=== PATIENT | female | born 1995 | race Caucasian/White ===

== ENCOUNTER → 2018-09-06 10:16 | Outpatient (CLI) | payer OTHER, SELFPAY ==
[2018-09-06 09:20] VITALS: BMI 25.8
[2018-09-06 10:49] LABS: Absolute Lymphocyte Count 1.82 X10^3/ul (0.83-4.51); Absolute Neutrophil Count 5.8 X10^3/uL (2.0-7.7); Basophil# 0.03 X10^3/uL; Basophil% 0.4 % (0-1); Eosinophil# 0.24 X10^3/uL; Eosinophils% 2.8 % (0-5); Hematocrit 33.9 % (37-47); Hemoglobin 11.6 g/dl (12.0-15.0); Lymphocyte # 1.82 X10^3/ul (4.0); Lymphocyte % 21.3 % (19-41); Mean Corp Hgb Conc 34.2 g/gl (32-36); Mean Corpuscular Volume 87.6 fL (81-99); Mean Platelet Vol. 12.8 fl (6.2-12.0); Neutrophil # 5.84 X10^3/uL (2.7-7.7); Neutrophil % 68.4 % (47-70); Platelet Count 190 K/mm3 (150-450); RBC Distribution Width CV 12.4 % (11.6-14.6); RBC Distribution Width SD 39.5 fl (35.1-43.9); Red Blood Count 3.87 M/mm3 (4.2-5.4); White Blood Count 8.5 K/mm3 (4.4-11.0)
[2018-09-06 10:51] LABS: POSITIVE COUNT NO; POSITIVE DIFFERENTIAL NO; POSITIVE MORPHOLOGY NO
[2018-09-06 11:59] LABS: HIV - WCH Non-Reactive (Nonreactive); Rubella IgG 215.6 IU/mL
[2018-09-06 16:09] LABS: Chlamydia Trachomatis by PCR Negative (Negative); Neisserai gonorrhoeae by PCR Negative (Negative); Probe Check PASS; Sample Adequacy Control PASS; Specimen Processing Control PASS
[2018-09-07 09:54] LABS: HEPATITIS B SURFACE AG Negative (Negative)
[2018-09-08 01:43] LABS: Rapid Plasmin Reagin (RPR) NONREACTIVE (NONREACTIVE)
[2018-09-08 12:56] LABS: HPV Reflexed? NOT INDICATED
== END ==
PROVIDERS: Family Provider Family Medicine; PCP Family Medicine; Referring Provider Obstetrics & Gynecology; Visit Provider Obstetrics & Gynecology
DX: Z34.81 Encounter for supervision of other normal pregnancy, first trimester (principal)
CPT/HCPCS: 36415; 85025; 86592; 86703; 86762; 86850; 86900; 87086; 87340; 87491; 87591; 87624; 88175; G0145

== ENCOUNTER → 2018-11-03 09:45 | Outpatient (CLI) | payer OTHER, SELFPAY ==
[2018-11-03 09:18] VITALS: BMI 25.8
== END ==
PROVIDERS: Family Provider Family Medicine; PCP Family Medicine; Referring Provider Obstetrics & Gynecology; Visit Provider Obstetrics & Gynecology
DX: Z36.9 Encounter for antenatal screening, unspecified (principal)
CPT/HCPCS: 36415

== ENCOUNTER → 2019-01-03 10:07 | Outpatient (CLI) | payer OTHER, SELFPAY ==
[2019-01-03 10:02] VITALS: BMI 25.8
[2019-01-03 10:53] LABS: Absolute Lymphocyte Count 1.93 X10^3/uL (0.83-4.51); Absolute Neutrophil Count 6.1 X10^3/uL (2.0-7.7); Basophil# 0.04 X10^3/uL; Basophil% 0.4 % (0-1); Eosinophil# 0.35 X10^3/uL; Eosinophils% 3.9 % (0-5); Hematocrit 33.1 % (37-47); Lymphocyte # 1.93 X10^3/ul (4.0); Lymphocyte % 21.5 % (19-41); Mean Corp Hgb Conc 33.2 g/dL (32-36); Mean Corpuscular Volume 93.2 fL (81-99); Mean Platelet Vol. 12.7 fl (6.2-12.0); Monocyte# 0.57 X10^3/uL; Monocyte% 6.3 % (0-10); NRBC Flagged by Analyzer 0 % (0-5); Neutrophil # 6.06 X10^3/uL (2.7-7.7); Neutrophil % 67.6 % (47-70); Platelet Count 173 K/mm3 (150-450); RBC Distribution Width SD 41.1 fl (35.1-43.9); Red Blood Count 3.55 M/mm3 (4.2-5.4)
[2019-01-03 11:12] LABS: Glucose Challenge Gest 1H 50g 103 mg/dL (70-140)
== END ==
PROVIDERS: Family Provider Family Medicine; PCP Family Medicine; Referring Provider Nurse Practitioner Women's Health; Visit Provider Nurse Practitioner Women's Health
DX: Z34.90 Encounter for supervision of normal pregnancy, unspecified, unspecified trimester (principal)
CPT/HCPCS: 36415; 82950; 85025

== ENCOUNTER → 2019-03-09 16:42 | Outpatient (CLI) | payer OTHER, SELFPAY ==
[2019-03-09 10:00] VITALS: BMI 25.8
== END ==
PROVIDERS: Family Provider Family Medicine; PCP Family Medicine; Referring Provider Obstetrics & Gynecology; Visit Provider Obstetrics & Gynecology
DX: Z34.02 Encounter for supervision of normal first pregnancy, second trimester (principal)
CPT/HCPCS: 87081

== ENCOUNTER 2019-03-11 01:55 | Inpatient (IN) | payer OTHER, SELFPAY ==
[2019-03-09 10:00] VITALS: BMI 25.8
[2019-03-11] MEDS: Lactated Ringers 1,000 ML 50 ML IV (02:33)
[2019-03-11 02:52] VITALS: BMI 29.6
[2019-03-11 03:00] LABS: Absolute Neutrophil Count 15.3 X10^3/uL (2.0-7.7); Basophil# 0.05 X10^3/uL; Basophil% 0.3 % (0-1); Eosinophil# 0.26 X10^3/uL; Eosinophils% 1.3 % (0-5); Hematocrit 30.2 % (37-47); Hemoglobin 10.3 g/dL (12.0-15.0); Lymphocyte % 11.3 % (19-41); Mean Corp Hgb Conc 34.1 g/dL (32-36); Mean Corpuscular Hgb 30.3 pg (27.0-32.0); Mean Corpuscular Volume 88.8 fL (81-99); Mean Platelet Vol. 13.3 fl (6.2-12.0); Monocyte% 8.2 % (0-10); NRBC Flagged by Analyzer 0 % (0-5); Neutrophil # 15.25 X10^3/uL (2.7-7.7); Neutrophil % 78.1 % (47-70); POSITIVE DIFFERENTIAL YES; Platelet Count 182 K/mm3 (150-450); RBC Distribution Width CV 12.4 % (11.6-14.6); RBC Distribution Width SD 40.2 fl (35.1-43.9); White Blood Count 19.5 K/mm3 (4.4-11.0)
[2019-03-11 03:05] LABS: International Normalized Ratio 1.1; Prothrombin Time (Protime)PT. 14.1 SECONDS (11.7-14.9)
[2019-03-11 03:10] LABS: Differential Indicated SCAN CRITERIA MET
[2019-03-11 03:30] LABS: Protein, Urine (Random) 62.8 mg/dL (<11.9); Protein:Creat Ratio 442 mg/g CRE (0-200)
[2019-03-11 03:30] LABS: AST(SGOT) 21 U/L (15-37); Alanine Aminotransfer ALT/SGPT 16 U/L (13-56); Creatinine, Serum 0.53 mg/dL (0.55-1.02); EST Glomerular Filtration Rate 151 mL/min (>60); Est Glom Filt Rate - Afr Amer 183 mL/min (>60); Estimated Creatinine Clearance 147.28 ml/min; Uric Acid 3.9 mg/dL (2.6-6.0)
--- NOTE | 2019-03-11 03:34 | PCM.HP.OB ---
- Problem List (1) Asthma Status: Acute Qualifiers: Comment: questionable diagnosis. hasn't used in over a month. sees Ana Weinstein. encouraged evaluation (2) Supervision of normal Status: Acute Qualifiers: Comment: PRR TROY 03/31/2019 boy Gordon Hernandez (son Jonny) (3) Status: Acute Qualifiers: Comment: low risk nipt horizon negative 4 out of 4 diseases. Anatomy US normal History Date of Admission: 03/11/19 Final TROY: 03/31/19 Gestational age: 37 Weeks and 1 Days History of this : This is a 23 year-old, at 37 weeks gestational age presents IAL 5 cm dilated with regular ctx. she denies any vb admits good fm. inital bps were elevated but repeats are WNL. WBC is elevated and temp is borderline. gbs unknown, was collected tuesday. rapid sent. Surgical History: Surgical History (Last Reviewed 03/09/19 @ 09:59 by Cristiane Covington) History of oral surgery Z98.890 Allergies cat dander Allergy (Verified 03/11/19 03:00) Other watery eyes and congestion Home Medications: Home Medications albuterol sulfate HFA 90 mcg/actuation aerosol inhaler 1 puff INHALATION Q6H PRN 09/06/18 cetirizine 10 mg capsule 10 mg PO DAILY 09/06/18 montelukast 10 mg tablet 10 mg PO QPM 09/06/18 vitamin#30 30 mg iron-10 mg iron-folic acid 1 mg-omg3 capsule cap PO cap 09/06/18 DiphenhydrAMINE [Benadryl] 25 mg PO DAILY PRN 03/11/19 Smoking Status: Never smoker Alcohol: None Number of Fetus(es): 1 NST - FHR Rate Baby A Baseline: 140 Variability:: Moderate Accelerations:: 15 x 15 Decelerations:: None NST Reactive:: Yes FHR Category:: Category I Uterine Activity:: q 3-5 History Past Pregnancies: Past Pregnancies Delivery Date Name GA/ Weeks Outcome Route Wt Sex Labor Length Anesthesia Delivery Location Provider FOB Labs: Mom's Labs & Results 03/11/19 03/11/19 03/11/19 02:30 02:33 02:33 WBC 19.5 H RBC 3.40 L Hgb 10.3 L Hct 30.2 L MCV 88.8 MCH 30.3 MCHC 34.1 RDW Std Deviation 40.2 RDW Coeff of Yvette 12.4 Plt Count 182 MPV 13.3 H Immature Gran % (Auto) 0.800 Neut % (Auto) 78.1 H Lymph % (Auto) 11.3 L Clare % (Auto) 8.2 Eos % (Auto) 1.3 Baso % (Auto) 0.3 Absolute Neuts (auto) 15.3 H Absolute Lymphs (auto) 2.20 Nucleated RBC % 0 PT INR APTT Creatinine Estim Creat Clear Calc Est GFR (MDRD) Af Amer Est GFR (MDRD) Non-Af Uric Acid AST ALT U Random Total Protein Urine Creatinine Protein/Creatinin Ratio Group B Strep DNA Pending Specimen Comment Pending Blood Type Pending Antibody Screen Pending 03/11/19 03/11/19 03/11/19 02:33 02:33 03:10 WBC RBC Hgb Hct MCV MCH MCHC RDW Std Deviation RDW Coeff of Yvette Plt Count MPV Immature Gran % (Auto) Neut % (Auto) Lymph % (Auto) Clare % (Auto) Eos % (Auto) Baso % (Auto) Absolute Neuts (auto) Absolute Lymphs (auto) Nucleated RBC % PT 14.1 INR 1.1 APTT 31.0 Creatinine 0.53 L Estim Creat Clear Calc 147.28 Est GFR (MDRD) Af Amer 183 Est GFR (MDRD) Non-Af 151 Uric Acid 3.9 AST 21 ALT 16 U Random Total Protein 62.8 H Urine Creatinine 142.00 Protein/Creatinin Ratio 442 H Group B Strep DNA Specimen Comment Blood Type Antibody Screen Course Did the patient receive Yes care? Labs Blood Type: O RH: POSITIVE RPR/VDRL/Syphilis Nonreactive Rubella status Immune HbSAg Negative Date Done: 09/06/18 Chlamydia Negative Gonorrhea Negative HIV/AIDS Non-Reactive Group B Strep: Collected on Admission Current Obstetrical History Gestational Diabetes No Incompetent Cervix No Infertility No IUGR No Macrosomia No Hypertension/Pre-eclampsia No Placenta Previa/Abruption No PTL/PROM No Uterine anomaly No Oligohydramnios No Polyhydramnios No Multiple gestation No Past Medical History Asthma Yes: intermittently uses inhaler Diabetes No Hypertension No Heart disease No Mitral valve prolapse No Neurologic/Seizure disorder/ No Migraines Kidney disease No Liver disease No Varicosities No Clotting disorders/Hx of DVT No Thyroid Dysfunction No Other medical diseases No Psychiatric disorders No Major trauma No Abnormal PAP smear No Sleep apnea No Mammogram in the last 2 years No Social History Marital Status: SINGLE Alleged father Charity Tejeda Hx Smoking No Smoking Status Never smoker Expected Infant Delivery Method: Spontaneous Vaginal Describe any other labor & delivery plans:: TROY Calculator. Estimated Delivery DateMethodCurrent WG. Current Wcjtwhzt27/04/20LMP (Certain)36w 6d. Expected Delivery Route/Plan. . Labor Preferences-. labor support person: charity ?maybe mom and grandma? pain management options preferred: epidural. cut cord/dad catch: declines. : maybe. PP control planned:unsure Review of Systems Constitutional: Denies: Fever, Malaise Eyes: Denies: Blurred vision, Vision Change HEENT: Denies: Head Aches, Visual Changes Cardiovascular: Denies: Chest Pain, Palpitations Respiratory: Denies: Cough, Shortness of Breath, Wheezing Gastrointestinal: Denies: Abdominal Pain, Diarrhea, Nausea, Vomiting Genitourinary: Denies: Dysuria, Hematuria Musculoskeletal: Denies: Joint Pain, Muscle pain Skin: Denies: Lesions, Rash Neurological: Denies: Blurred vision, Focal weakness, Headaches Psychiatric: Denies: Anxiety, Depression Endocrine: Denies: Heat/ Cold Intolerance Hematologic/ Lymphatic: Denies: Easy Bruising, Easy Bleeding Physical Exam General: Alert, Cooperative, No apparent distress HEENT: Atraumatic, Normocephalic. Negative for: Thyromegaly, Lymphadenopathy Cardiovascular: Regular rate Lungs: Normal air movement Abdomen: Soft, Non Tender, Gravid Neurological: Deep Tendon Reflexes 2+/4 and Symmetrical, Neuro grossly intact. Negative for: Clonus FOUNDATION DIGGER: Normal external genitalia. Negative for: Vulvar lesions Estimated gestational size: Appropriate for gestational size Presentation: Cephalic Cervix Dilation (cm): 5 Station: -1 Effacement (%): 90 Assessment/Plan All Active Problems (Last Reviewed 03/09/19 @ 09:59 by Cristiane Covington) Asthma (Acute) Supervision of normal (Acute) (Acute) This is a 23 year-old, at 37 weeks gestational age presents IAL Patient presents IAL, plan expectant management for , pitocin/AROM PRN if needed. Pain management: Plans epidural. GBS unknown but borderline temperature and elevated white blood cell count. Recommend ampicillin. Management of any complications: None I have reviewed the [facility] and made any clinically relevant updates.
[2019-03-11] MEDS: Lactated Ringers 500 ML 999 ML IV (04:15)
[2019-03-11] MEDS: fentaNYL-bupivacaine (epidural) 100 ML BAG EPIDURAL ×2 (05:15→09:56)
[2019-03-11 05:35] LABS: Group B Strep DNA By PCR Negative (Negative); Internal Control PASS; Probe Check PASS; Specimen Processing Control PASS
[2019-03-11] MEDS: Lactated Ringers 1,000 ML 200 ML IV (10:01)
[2019-03-11] MEDS: Oxytocin 30 units/NS 500 ml 30 UNITS/500 ML IV.SOLN 334 UNITS IV (11:36)
--- NOTE | 2019-03-11 12:02 | PCM.OPRPT ---
Problem List (1) Asthma Status: Acute Qualifiers: Comment: questionable diagnosis. hasn't used in over a month. sees Ana Weinstein. encouraged evaluation (2) Supervision of normal Status: Acute Qualifiers: Comment: PRR TROY 03/31/2019 boy Gordon Hernandez (son Jonny) (3) Status: Acute Qualifiers: Comment: low risk nipt horizon negative 4 out of 4 diseases. Anatomy US normal Vaginal Delivery Maternal Presentation: Active Labor ial 37 weeks Amniotic Membrane Rupture Type: Spontaneous at home Amniotic Fluid Description: Clear Final TROY: 03/31/19 Gestational age: 37 Weeks and 1 Days Date of Procedure: 03/11/19 Surgery/ Procedure Performed: Spontaneous Vaginal Delivery Type of Anesthesia: Epidural Description of Procedure: Patient began pushing and delivered the head in the ЕЛЕНА presentation. The head was delivered atraumatically . The anterior and posterior shoulders delivered without complication followed by the rest of the infant and the infant was placed on the maternal abdomen. Delayed cord clamping was employed for approximately 60 seconds. Cord was clamped and cut and gentle traction was applied to the cord and the placenta delivered spontaneously immediately following it was noted to be intact with three-vessel cord. The perineum and vagina were inspected and no laceration seen. EBL was 200 cc. Patient and infant tolerated delivery well. Presentation: ЕЛЕНА Placental Delivery Description: Spontaneous Placenta Disposition: [facility] Cord Vessel Description: 3 Vessels Cord Entanglement: None Estimated Blood Loss: 200 Infant A gender: Male Episiotomy Description: None Laceration: None Medications given after delivery: IV Pitocin Complications: None Multi Select Codes - Urinary/Genital Urinary/Genital CPT Codes: 40430 Vaginal Delivery [facility]
[2019-03-11] MEDS: 0.9% Saline Lock 10 ML Syringe IV (14:06)
[2019-03-11 15:35] VITALS: BP 129/75; PULSE 99; RESP 16; TEMP 37.4; O2SAT 97
[2019-03-11] MEDS: Naproxen 250 MG Tablet 500 MG PO (17:04)
[2019-03-11 19:52] VITALS: BP 119/58; PULSE 88; RESP 16; TEMP 37.7
[2019-03-11] MEDS: Montelukast 10 MG Tablet PO (20:58)
[2019-03-11 23:11] VITALS: BP 122/64; PULSE 82; RESP 16; TEMP 37.1
[2019-03-12 03:05] VITALS: BP 122/74; PULSE 80; RESP 18; TEMP 36.7
[2019-03-12] MEDS: Naproxen 250 MG Tablet 500 MG PO (03:12)
--- NOTE | 2019-03-12 08:04 | PN.OBGYN_ITS ---
Subjective: doing well no complaints pain controlled no CP SOB N V ambulating well tolerating po lochia moderate, bottle feeding going well - Physical Exam Vitals/I&O's: Vital Signs Temp Pulse Resp BP Pulse Ox 98.0 F 80 18 122/74 H 97 03/12/19 03:05 03/12/19 03:05 03/12/19 03:05 03/12/19 03:05 03/11/19 15:35 Oxygen Delivery Method Room Air Weight: 178 lb 4 oz Body Mass Index (BMI) 29.6 Intake and Output for Last 24 Hours 03/10/19 03/11/19 03/12/19 23:59 23:59 23:59 Intake Total 2466.67 / 2466.67 Output Total 1075 / 1075 Balance 1391.67 / 1391.67 General: Alert, Oriented x3 Current Medications Acetaminophen (Tylenol) 1,000 mg PO Q8H PRN PRN PRN Reason: Pain Score 1-3/10 Albuterol Sulfate (Ventolin Aerosols) 2.5 mg INHALATION Q4H PRN PRN PRN Reason: SHORTNESS OF BREATH Bisacodyl (Dulcolax) 10 mg RECTAL UD PRN PRN Reason: If no BM Dibucaine (Dibucaine) 1 applic TOPICAL TID PRN PRN; Protocol PRN Reason: Discomfort Diphenhydramine HCl (Benadryl) 25 mg PO DAILY PRN PRN Reason: ALLERGIES Hydrocortisone (Hytone) 1 applic TOPICAL TID PRN PRN; Protocol PRN Reason: Discomfort Loratadine (Claritin) 10 mg PO DAILY [facility] Methylergonovine Maleate (Methergine) 0.2 mg IM X1 PRN PRN Reason: Excess bleeding/uterine atony Montelukast Sodium (Singulair) 10 mg PO QPM [facility] Last Admin: 03/11/19 20:58 Dose: 10 mg Documented by: Naproxen (Naprosyn) 500 mg PO Q8H PRN PRN PRN Reason: Pain Score 1-3/10 Last Admin: 03/12/19 03:12 Dose: 500 mg Documented by: Ondansetron HCl (Zofran) 4 mg IV Q4H PRN PRN PRN Reason: Nausea Oxycodone HCl (Oxyir) 5 - 10 mg PO Q4H PRN PRN PRN Reason: Pain Score 4-10/10 Senna/Docusate Sodium (Senokot-S, Lillian-Colace) 1 - 2 tablet PO DAILY PRN PRN PRN Reason: Constipation Simethicone (Mylicon) 80 mg PO PCHS PRN PRN Reason: Indigestion/Stomach pain Sodium Chloride () 5 - 15 ml IV UD PRN PRN Reason: SALINE FLUSH Last Admin: 03/11/19 14:06 Dose: 10 ml Documented by: Medical Necessity - Tobacco Use Smoking Status: Never smoker Assessment/Plan All Active Problems (Last Reviewed 03/09/19 @ 09:59 by Cristiane Covington) Asthma (Acute) Supervision of normal (Acute) (Acute) s/p PPD # 1 1. routine post delivery care 2. bottle feeding- support given 3. rh positive 4. rubella immune
--- NOTE | 2019-03-12 08:05 | DCINST_ITS ---
Discharge Diet: No Restrictions Discharge Activity: Return to Normal Activity, May not drive while taking narcotic pain medications., May Shower May resume sexual activity in: 4-6 weeks Call your doctor if your incision/area has: Continuous Slow Oozing, Sudden Increased Bleeding, Increased Pain/ Swelling, Increased Redness, Foul Smelling Discharge Additional Instructions: If you experience any of the following, contact your healthcare provider. * Bleeding that soaks a pad every hour for 2 hours * Fever 100.4 or higher * Unrelieved incision or abdominal pain * Swelling, redness, discharge or bleeding from your incision or episiotomy site * Your incision begins to separate * Problems urinating (including inability to urinate or burning while urinating). * Visual changes * Severe headache * Flu-like symptoms * Pain or redness in one of both of your breasts * Pain, warmth, tenderness or swelling in your legs, especially the calf area * Frequent nausea and vomiting * Symptoms of depression or anxiety If you experience any of the following, call 911 or go to the nearest Emergency Room. * Chest pain * Problems breathing * Seizure activity * Partial or complete paralysis of a body part, slurred speech, weakness or drooping of the face, or a sudden inability to walk or hold your balance Allergies/Adverse Reactions: Allergies cat dander Allergy (Verified 03/11/19 03:00) Other watery eyes and congestion Medications to take at Discharge albuterol sulfate HFA 90 mcg/actuation aerosol inhaler 1 puff INHALATION Q6H PRN 09/06/18 cetirizine 10 mg capsule 10 mg PO DAILY 09/06/18 montelukast 10 mg tablet 10 mg PO QPM 09/06/18 vitamin#30 30 mg iron-10 mg iron-folic acid 1 mg-omg3 capsule cap PO cap 09/06/18 DiphenhydrAMINE [Benadryl] 25 mg PO DAILY PRN 03/11/19 Please Follow Up With: Nikole Durham MD - [phone] When: Call to make an appointment with your doctor in 6 weeks. If you had elevated Blood pressure or 4th degree laceration you will need to be seen in 2 weeks. Primary Care Physician: Ana Weinstein MD [Primary Care Provider] - Test Results: Test results from this visit will be discussed in further detail at your follow- up appointment, if applicable.
[2019-03-12 08:26] VITALS: BP 128/74; PULSE 88; TEMP 37.2
[2019-03-12] MEDS: Senna/Docusate Sodium 1 Tablet PO (10:12)
--- NOTE | 2019-03-12 14:19 | CASEMGMT ---
Social Work Assessment Labor and Delivery Unit Date of Referral: 03/11/19 Time of Referral: 20:07 Referred By: Dr. Main Spence Date of Intervention: 03/12/19 Time of Intervention: 14:16 Reason for Referral: Resources and limited support from Father of Baby (FOB). History obtained from: Medical Chart, Nursing staff, Mother of baby (MOB). Household composition: FOB, MOB and now this , Gordon Tejeda. DEANNA also has a 6 year old son, Jonny Tejeda. Jonny does not share maternity with Gordon. DEANNA has shared parenting with Jonny's mother and has Jonny on and off throughout the month. Patient's parent/guardian status: MOB and FOB are own persons and have custody of this infant. Medical History: MOB with history of . Infant with 's of 8 and 9 and weight of 3.135kg. MOB noting no other pertinent medical history. Educational Status: MOB with a high school diploma and reporting no concerns with comprehension or understanding for either MOB or FOB. Financial Status: No concerns. 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 FOB works full-time as a dairy farm operator during the day hours and works as a police shift commander in the evenings. Infant Supplies: MOB stating to have all needed supplies for infant (crib, car seat, formula, clothing, etc.). Childcare/Caregiver(s): MOB plans to be primary caregiver for the first 6-12 weeks as MOB is unsure how much leave time MOB will be taking. MOB stating plan for paternal and maternal grandparents to assist with early childhood associate teacher once MOB returns to work. Transportation: No concerns. Programs/Agencies Involved: No active programs/agencies at this time. MOB educated on Help Me Grow and declining referral at this time stating to have needed support in the community. MOB educated on self referral process of changing mind. Children Services/Legal Issues: No history. Behavioral Health Issues: No history for either MOB or FOB. Mental Health History: MOB denies any history of mental health for MOB or FOB. This social professionals educating MOB on signs and symptoms of depression and encouraging MOB to stay in communicating with support group as well as doctor if any signs or symptoms or arise. Nursing staff reporting that MOB was tearful after delivery due to FOB wanting to leave after delivery. Was able to broach topic of concerns of FOB's limited involvement. MOB stating that FOB has held infant and is reporting to be interested. MOB stating that was unplanned but accepted. MOB stating to be surprised at how involved FOB is as FOB was not very involved with FOB's first child, Jonny. MOB stating to have needed support without FOB and to have a positive mindset that FOB will be involved more with this . This social professionals encouraging MOB to reach out for support and assistance if needed, MOB voicing understanding and plant to ask for support from family if needed. Substance Use History: MOB denies any substance abuse use for MOB or FOB. Maternal and Drug Screens: No tox screen completed on admission for MOB or infant. PHQ9: MOB with a 0/27 on mini-PHQ-9. Concerns of MOB with limited support from FOB and tearfulness around this issue. As noted above was able to broach this topic of MOB. MOB presenting with a positive affect and engaged in assessment. MOB stating no concerns with returning to home. Family/Social Stressors: MOB stating to have a positive relationship with FOB's prior partner. MOB stating we get along well. MOB stating that FOB's family lives next door and plan to assist as possible. MOB stating that FOB's family might be over to the home more then I even want. This social professionals encouraging MOB to advocate for self and that boundaries can be healthy for both MOB and , MOB voicing understanding and welcoming of conversation with this social professionals. Support Systems: MOB stating to have support from FOB, paternal and maternal family. Depression and Anxiety/Shaken Baby/Safe Sleeping: Addressed and able to have conversation with MOB about depression, anxiety, shaken baby, and safe sleeping. Resources provided along with [facility] general resource list. ASSESSMENT: Met with MOB and in room. MOB's mother along with grandmother present and supportive of MOB. MOB wanting family to stay in room during assessment. MOB stating that FOB, David Tejeda just left. MOB stating that David was present during delivery and is supportive. MOB stating that David has held infant and MOB believes that David regrets on being involved more with David's first child. MOB stating that David left to go seed cone pick[employer] [place] from school. MOB stating that plan is to bottle feed infant and this is going well. MOB's mother stating to be excited about infant and plans to help as possible. MOB stating to feel a connection with . This social professionals broaching topic of control plan as was not plan. MOB stating to have no plans for control in the future. MOB stating to be aware of control options and planning to not begin any control. MOB stating to be aware of possible and stating I know how babies are made. Active listening and support provided throughout assessment. MOB thanking this social professionals for time. PLAN: to discharge to home with MOB and FOB. No other services requested or indicated. Partha FOLEY, RAMONA
[2019-03-12] MEDS: Loratadine 10 MG Tablet PO (14:28)
[2019-03-12 14:29] VITALS: BP 126/73; PULSE 79; TEMP 36.7
[2019-03-12 19:32] VITALS: BP 115/64; PULSE 90; RESP 16; TEMP 36.8; O2SAT 97
[2019-03-12] MEDS: Acetaminophen 500 MG Tablet 1000 MG PO (22:35)
[2019-03-12] MEDS: Montelukast 10 MG Tablet PO (22:49)
[2019-03-13 02:45] VITALS: BP 120/63; PULSE 62; RESP 14; TEMP 36.6
[2019-03-13] MEDS: Naproxen 250 MG Tablet 500 MG PO (03:10)
[2019-03-13 08:00] VITALS: BP 127/74; PULSE 74; RESP 16; TEMP 36.7
--- NOTE | 2019-03-13 08:14 | PN.OBGYN_ITS ---
Subjective: doing well no complaints pain controlled no CP SOB N V ambulating well tolerating po lochia moderate, bottle feeding - Physical Exam Vitals/I&O's: Vital Signs Temp Pulse Resp BP Pulse Ox 98 F 62 14 120/63 97 03/13/19 02:45 03/13/19 02:45 03/13/19 02:45 03/13/19 02:45 03/12/19 19:32 Oxygen Delivery Method Room Air Weight: 178 lb 4 oz Body Mass Index (BMI) 29.6 Intake and Output for Last 24 Hours 03/11/19 03/12/19 03/13/19 23:59 23:59 23:59 Intake Total 2466.67 / 2466.67 500 / 500 Output Total 1075 / 1075 Balance 1391.67 / 1391.67 500 / 500 General: Alert, Oriented x3 Abdomen: Soft, - - FF below U Current Medications Acetaminophen (Tylenol) 1,000 mg PO Q8H PRN PRN PRN Reason: Pain Score 1-3/10 Last Admin: 03/12/19 22:35 Dose: 1,000 mg Documented by: Albuterol Sulfate (Ventolin Aerosols) 2.5 mg INHALATION Q4H PRN PRN PRN Reason: SHORTNESS OF BREATH Bisacodyl (Dulcolax) 10 mg RECTAL UD PRN PRN Reason: If no BM Dibucaine (Dibucaine) 1 applic TOPICAL TID PRN PRN; Protocol PRN Reason: Discomfort Diphenhydramine HCl (Benadryl) 25 mg PO DAILY PRN PRN Reason: ALLERGIES Hydrocortisone (Hytone) 1 applic TOPICAL TID PRN PRN; Protocol PRN Reason: Discomfort Loratadine (Claritin) 10 mg PO DAILY [facility] Last Admin: 03/12/19 14:28 Dose: 10 mg Documented by: Methylergonovine Maleate (Methergine) 0.2 mg IM X1 PRN PRN Reason: Excess bleeding/uterine atony Montelukast Sodium (Singulair) 10 mg PO QPM [facility] Last Admin: 03/12/19 22:49 Dose: 10 mg Documented by: Naproxen (Naprosyn) 500 mg PO Q8H PRN PRN PRN Reason: Pain Score 1-3/10 Last Admin: 03/13/19 03:10 Dose: 500 mg Documented by: Ondansetron HCl (Zofran) 4 mg IV Q4H PRN PRN PRN Reason: Nausea Oxycodone HCl (Oxyir) 5 - 10 mg PO Q4H PRN PRN PRN Reason: Pain Score 4-10/10 Senna/Docusate Sodium (Senokot-S, Lillian-Colace) 1 - 2 tablet PO DAILY PRN PRN PRN Reason: Constipation Last Admin: 03/12/19 10:12 Dose: 2 tablet Documented by: Simethicone (Mylicon) 80 mg PO PCHS PRN PRN Reason: Indigestion/Stomach pain Sodium Chloride () 5 - 15 ml IV UD PRN PRN Reason: SALINE FLUSH Last Admin: 03/11/19 14:06 Dose: 10 ml Documented by: Medical Necessity - Tobacco Use Smoking Status: Never smoker Assessment/Plan All Active Problems (Last Reviewed 03/09/19 @ 09:59 by Cristiane Covington) Asthma (Acute) Supervision of normal (Acute) (Acute) s/p PPD # 1 1. routine post delivery care 2. bottle feeding 3. rh positive 4. rubella immune 5. home today
[2019-03-13 09:25] LABS: Pathologist Review Reviewed
[2019-03-13] MEDS: Loratadine 10 MG Tablet PO (09:36)
[2019-03-13] MEDS: Senna/Docusate Sodium 1 Tablet PO (09:36)
== END 2019-03-13 12:45 | disposition home or self-care (01) | DRG 807 ==
PROVIDERS: Admitting Provider Obstetrics & Gynecology; Family Provider Family Medicine; PCP Family Medicine; Referring Provider Obstetrics & Gynecology; Visit Provider Obstetrics & Gynecology
DX: O42.92 Full-term premature rupture of membranes, unspecified as to length of time between rupture and onset of labor (principal); Z37.0 Single live birth; O99.52 Diseases of the respiratory system complicating childbirth; J45.909 Unspecified asthma, uncomplicated; Z3A.37 37 weeks gestation of pregnancy
CPT/HCPCS: 59025; 59050; 82565; 82570; 84156; 84450; 84460; 84550; 85025; 85610; 85730; 86850; 86900; 86901; 87081; 87653; 99218; J7120; A4216; G0378; J0290